=== PATIENT | female | born 1945 | race Caucasian/White ===

== ENCOUNTER 2017-07-14 16:09 | Inpatient (IN) | payer MEDICARE, MEDICAID ==
[~2017-07-14] VITALS: Ht 5619.3 cm; Wt 68.2 kg
[~2017-07-14 16:09] MED LIST: CALC-792 PO; CLOP75TA33 PO; CLOP75TA35 PO; DONE5TAB3 PO; FERR-86 PO; FOLI1TAB16 PO; LANS30CA37 PO; LORA1TAB PO; QUET-1 PO; SIMV10TA2 PO; THI100T PO; [UNRECOGNIZED DRUG - CODE] PO; [UNRECOGNIZED DRUG - CODE] PO
[2017-07-14] MEDS ORDERED: ipratropium/albuterol 3ml nebule NEB ONE (16:30)
[2017-07-14] MEDS ORDERED: methylPREDNISolone sod succ 125mg/2ml vial IM ONE (16:30)
[2017-07-14] MEDS ORDERED: levoFLOXACIN-Levaquin 500mg/D5 100 ML IV ONE (17:40)
[2017-07-14 18:00] LABS: ABG BASE EXCESS 0.8 mmol/L (-2.0-3.0); ABG HCO3 25.4 mmol/L (22.0-26.0); ABG OXYGEN SATURATION 93.1 % (95-98); ABG PCO2 (T) 40.6 mmHg (32.0-45.0); ABG PH (T) 7.414 (7.350-7.450); ABG PO2 (T) 61.2 mmHg (83-108); ALLEN'S TEST Positive; FCOHb 3.3 % (0.5-1.5); FMetHb 0.1 % (0.3-1.12); FO2Hb 89.9 % (94-100)
[2017-07-14 18:01] LABS: BASOPHILS % (AUTO) 0.4 % (0-1); EOSINOPHILS # (AUTO) 0.2 X10'3 (0-0.9); EOSINOPHILS % (AUTO) 2.3 % (0-6); HEMATOCRIT 43.8 % (35.0-45.0); LYMPHOCYTES # (AUTO) 2.3 X10'3 (1.1-4.8); LYMPHOCYTES % (AUTO) 24.9 % (21-51); MEAN CORPUSCULAR HGB CONC 34.3 % (33.0-36.5); MEAN CORPUSCULAR VOLUME 90.4 FL (78-98); MEAN PLATELET VOLUME 7.3 FL (7.4-10.4); MONOCYTES # (AUTO) 1.1 X10'3 (0-0.9); MONOCYTES % (AUTO) 11.9 % (2-12); NEUTROPHILS # (AUTO) 5.5 X10'3 (1.8-7.7); NEUTROPHILS % (AUTO) 60.5 % (42-75); PLATELET COUNT 253 X10'3 (140-440); RED BLOOD COUNT 4.84 X10'6 (4.20-5.60); RED CELL DISTRIBUTION WIDTH 14.9 % (11.5-14.5); WHITE BLOOD COUNT 9.1 X10'3 (4.5-11.0)
[2017-07-14 18:10] LABS: INR 0.9 INR; PROTHROMBIN TIME 9.8 SECONDS (9.0-12.0)
[2017-07-14 18:25] LABS: ALANINE AMINOTRANSFERASE 46 U/L (12-78); ALBUMIN 3.5 G/DL (3.4-5.0); ALKALINE PHOSPHATASE 78 IU/L (46-116); ANION GAP 5 (8-16); ASPARTATE AMINO TRANSFERASE 24 U/L (10-37); BILIRUBIN,TOTAL 0.2 MG/DL (0.1-1.0); BLOOD UREA NITROGEN 14 MG/DL (7-18); BUN/CREATININE RATIO 17.5 (6.6-38.0); CHLORIDE 103 MMOL/L (99-107); GLUCOSE 107 MG/DL (70-104); POTASSIUM 4.1 MMOL/L (3.5-5.1); SODIUM 138 MMOL/L (135-145); TOTAL CARBON DIOXIDE 29.6 MMOL/L (24-32); eGFR 70 ML/MIN
[2017-07-14] MEDS ORDERED: nicotine 21mg patch - 24 hr TD ONE (18:55)
[2017-07-14] MEDS: albuterol 2.5 MG/3 ML nebule NEB SCH ×2 (20:00→23:37)
[2017-07-14] MEDS: quetiapine 100mg tablet PO SCH (20:32)
[2017-07-14] MEDS: LORazepam 1 MG tablet PO SCH (20:32)
[2017-07-14] MEDS: ferrous sulfate 325mg tablet PO SCH (20:32)
[2017-07-14] MEDS: atorvastatin 10mg tablet PO SCH (20:32)
[2017-07-14] MEDS ORDERED: acetaminophen 325mg tablet PO PRN (21:35)
[2017-07-14] MEDS ORDERED: ondansetron/PF 4mg/2ml inj IV PRN (21:35)
[2017-07-14] MEDS ORDERED: mag hydrox/Alum hydrox/simeth 30ml oral suspension PO PRN (21:35)
[2017-07-14] MEDS ORDERED: magnesium hydroxide 30ml (MOM) UD suspension PO PRN (21:35)
[2017-07-15] MEDS: methylPREDNISolone sod succ/PF 40mg inj. IV SCH ×4 (00:07→23:54)
[2017-07-15 03:35] VITALS: BP 142/78
[2017-07-15] MEDS: albuterol 2.5 MG/3 ML nebule NEB SCH ×5 (04:19→20:01)
[2017-07-15 06:02] LABS: BASOPHILS % (AUTO) 0.1 % (0-1); EOSINOPHILS % (AUTO) 0 % (0-6); HEMATOCRIT 43.4 % (35.0-45.0); HEMOGLOBIN 14.8 g/dl (12.0-16.0); LYMPHOCYTES # (AUTO) 0.5 X10'3 (1.1-4.8); LYMPHOCYTES % (AUTO) 8.6 % (21-51); MEAN CORPUSCULAR HEMOGLOBIN 30.6 PG (27.0-31.0); MEAN PLATELET VOLUME 7.5 FL (7.4-10.4); MONOCYTES # (AUTO) 0.1 X10'3 (0-0.9); MONOCYTES % (AUTO) 2.2 % (2-12); NEUTROPHILS # (AUTO) 5.5 X10'3 (1.8-7.7); NEUTROPHILS % (AUTO) 89.1 % (42-75); PLATELET COUNT 265 X10'3 (140-440); RED BLOOD COUNT 4.83 X10'6 (4.20-5.60); RED CELL DISTRIBUTION WIDTH 14.9 % (11.5-14.5); WHITE BLOOD COUNT 6.2 X10'3 (4.5-11.0)
[2017-07-15 06:23] LABS: ALANINE AMINOTRANSFERASE 47 U/L (12-78); ALBUMIN 3.7 G/DL (3.4-5.0); ALKALINE PHOSPHATASE 80 IU/L (46-116); ANION GAP 8 (8-16); ASPARTATE AMINO TRANSFERASE 23 U/L (10-37); BILIRUBIN,TOTAL 0.2 MG/DL (0.1-1.0); BLOOD UREA NITROGEN 10 MG/DL (7-18); BUN/CREATININE RATIO 14.3 (6.6-38.0); CHLORIDE 103 MMOL/L (99-107); GLUCOSE 149 MG/DL (70-104); SODIUM 137 MMOL/L (135-145); TOTAL CARBON DIOXIDE 26.2 MMOL/L (24-32); TOTAL PROTEIN 7.3 G/DL (6.4-8.2); eGFR 82 ML/MIN
[2017-07-15 07:00] VITALS: BP 136/79
[2017-07-15] MEDS: thiamine 100mg tablet PO SCH (07:56)
[2017-07-15] MEDS: pantoprazole 40mg Tablet.DR PO SCH (07:57)
[2017-07-15] MEDS: folic acid 1mg tablet PO SCH (07:57)
[2017-07-15] MEDS: donepezil 5mg tablet PO SCH (07:57)
[2017-07-15] MEDS: clopidogrel 75mg tablet PO SCH (07:57)
[2017-07-15] MEDS: LORazepam 1 MG tablet PO SCH ×2 (07:57→20:20)
[2017-07-15] MEDS: ferrous sulfate 325mg tablet PO SCH ×2 (07:57→20:20)
[2017-07-15] MEDS: quetiapine 100mg tablet PO SCH ×2 (07:57→20:20)
[2017-07-15] MEDS: heparin, porcine 5000 units/ml vial SQ SCH ×2 (07:58→20:20)
[2017-07-15] MEDS: nicotine 14mg patch - 24hr TD SCH ×2 (08:00→14:05)
[2017-07-15 20:00] VITALS: BP 143/82
[2017-07-15] MEDS: atorvastatin 10mg tablet PO SCH (20:27)
[2017-07-16] VITALS: BP 138/72
[2017-07-16] MEDS: albuterol 2.5 MG/3 ML nebule NEB SCH ×4 (00:11→10:31)
[2017-07-16 05:58] LABS: BASOPHILS % (AUTO) 0 % (0-1); EOSINOPHILS % (AUTO) 0 % (0-6); HEMATOCRIT 41.1 % (35.0-45.0); HEMOGLOBIN 14.1 g/dl (12.0-16.0); LYMPHOCYTES # (AUTO) 0.7 X10'3 (1.1-4.8); LYMPHOCYTES % (AUTO) 4.7 % (21-51); MEAN CORPUSCULAR HEMOGLOBIN 30.9 PG (27.0-31.0); MEAN CORPUSCULAR HGB CONC 34.4 % (33.0-36.5); MEAN CORPUSCULAR VOLUME 89.9 FL (78-98); MEAN PLATELET VOLUME 7.6 FL (7.4-10.4); MONOCYTES # (AUTO) 0.6 X10'3 (0-0.9); NEUTROPHILS # (AUTO) 14.6 X10'3 (1.8-7.7); NEUTROPHILS % (AUTO) 91.3 % (42-75); PLATELET COUNT 249 X10'3 (140-440); RED BLOOD COUNT 4.57 X10'6 (4.20-5.60); RED CELL DISTRIBUTION WIDTH 14.8 % (11.5-14.5)
[2017-07-16 06:22] LABS: ALANINE AMINOTRANSFERASE 48 U/L (12-78); ALBUMIN 3.4 G/DL (3.4-5.0); ALKALINE PHOSPHATASE 65 IU/L (46-116); ANION GAP 7 (8-16); ASPARTATE AMINO TRANSFERASE 28 U/L (10-37); BILIRUBIN,TOTAL 0.2 MG/DL (0.1-1.0); BLOOD UREA NITROGEN 21 MG/DL (7-18); BUN/CREATININE RATIO 26.3 (6.6-38.0); CALCIUM 8.8 MG/DL (8.5-10.1); CHLORIDE 104 MMOL/L (99-107); GLUCOSE 129 MG/DL (70-104); POTASSIUM 4.2 MMOL/L (3.5-5.1); SODIUM 138 MMOL/L (135-145); TOTAL CARBON DIOXIDE 27.4 MMOL/L (24-32); TOTAL PROTEIN 6.8 G/DL (6.4-8.2); eGFR 70 ML/MIN
[2017-07-16] MEDS: heparin, porcine 5000 units/ml vial SQ SCH ×2 (07:37→20:45)
[2017-07-16] MEDS: methylPREDNISolone sod succ/PF 40mg inj. IV SCH ×2 (07:37→17:16)
[2017-07-16] MEDS: pantoprazole 40mg Tablet.DR PO SCH (07:37)
[2017-07-16] MEDS: folic acid 1mg tablet PO SCH (07:37)
[2017-07-16] MEDS: clopidogrel 75mg tablet PO SCH (07:37)
[2017-07-16] MEDS: LORazepam 1 MG tablet PO SCH ×2 (07:37→20:37)
[2017-07-16] MEDS: quetiapine 100mg tablet PO SCH ×2 (07:37→20:37)
[2017-07-16] MEDS: ferrous sulfate 325mg tablet PO SCH ×2 (07:37→20:37)
[2017-07-16] MEDS: nicotine 14mg patch - 24hr TD SCH (07:38)
[2017-07-16] MEDS: donepezil 5mg tablet PO SCH (07:38)
[2017-07-16] MEDS: thiamine 100mg tablet PO SCH (07:41)
[2017-07-16 08:00] VITALS: BP 133/76
[2017-07-16] MEDS ORDERED: predniSONE 20 mg tablet PO SCH (08:00)
[2017-07-16 11:00] VITALS: BP 118/66
[2017-07-16] MEDS: ipratropium/albuterol 3ml nebule NEB SCH ×3 (17:05→23:04)
[2017-07-16] MEDS: doxycycline hyclate 100mg tablet.DR PO SCH (17:16)
[2017-07-16 19:00] VITALS: BP 136/78
[2017-07-16] MEDS: atorvastatin 10mg tablet PO SCH (20:37)
[2017-07-17] VITALS: BP 157/79
[2017-07-17] MEDS: methylPREDNISolone sod succ/PF 40mg inj. IV SCH ×3 (00:03→17:10)
[2017-07-17] MEDS: ipratropium/albuterol 3ml nebule NEB SCH ×6 (02:30→23:49)
[2017-07-17 06:12] LABS: BASOPHILS % (AUTO) 0 % (0-1); EOSINOPHILS # (AUTO) 0.4 X10'3 (0-0.9); EOSINOPHILS % (AUTO) 1.8 % (0-6); HEMATOCRIT 41.3 % (35.0-45.0); LYMPHOCYTES # (AUTO) 0.7 X10'3 (1.1-4.8); LYMPHOCYTES % (AUTO) 3.6 % (21-51); MEAN CORPUSCULAR HGB CONC 33.9 % (33.0-36.5); MEAN CORPUSCULAR VOLUME 91.2 FL (78-98); MEAN PLATELET VOLUME 7.9 FL (7.4-10.4); MONOCYTES # (AUTO) 0.5 X10'3 (0-0.9); MONOCYTES % (AUTO) 2.7 % (2-12); NEUTROPHILS # (AUTO) 17.7 X10'3 (1.8-7.7); NEUTROPHILS % (AUTO) 91.9 % (42-75); PLATELET COUNT 271 X10'3 (140-440); RED BLOOD COUNT 4.53 X10'6 (4.20-5.60); RED CELL DISTRIBUTION WIDTH 14.5 % (11.5-14.5); WHITE BLOOD COUNT 19.2 X10'3 (4.5-11.0)
[2017-07-17 06:40] LABS: ALANINE AMINOTRANSFERASE 60 U/L (12-78); ALBUMIN 3.6 G/DL (3.4-5.0); ALBUMIN/GLOBULIN RATIO 1.1 (1.1-1.5); ALKALINE PHOSPHATASE 62 IU/L (46-116); ANION GAP 9 (8-16); ASPARTATE AMINO TRANSFERASE 36 U/L (10-37); BILIRUBIN,TOTAL 0.3 MG/DL (0.1-1.0); BLOOD UREA NITROGEN 21 MG/DL (7-18); CALCIUM 9.1 MG/DL (8.5-10.1); CHLORIDE 102 MMOL/L (99-107); GLUCOSE 127 MG/DL (70-104); SODIUM 136 MMOL/L (135-145); TOTAL CARBON DIOXIDE 25.2 MMOL/L (24-32); TOTAL PROTEIN 6.9 G/DL (6.4-8.2); eGFR 82 ML/MIN
[2017-07-17] MEDS: nicotine 14mg patch - 24hr TD SCH (07:57)
[2017-07-17] MEDS: ferrous sulfate 325mg tablet PO SCH ×2 (07:57→20:53)
[2017-07-17] MEDS: LORazepam 1 MG tablet PO SCH ×2 (07:57→20:52)
[2017-07-17] MEDS: pantoprazole 40mg Tablet.DR PO SCH (07:57)
[2017-07-17] MEDS: clopidogrel 75mg tablet PO SCH (07:58)
[2017-07-17] MEDS: folic acid 1mg tablet PO SCH (07:58)
[2017-07-17] MEDS: quetiapine 100mg tablet PO SCH ×2 (07:58→20:53)
[2017-07-17] MEDS: thiamine 100mg tablet PO SCH (07:58)
[2017-07-17] MEDS: doxycycline hyclate 100mg tablet.DR PO SCH ×2 (07:58→17:10)
[2017-07-17] MEDS: donepezil 5mg tablet PO SCH (07:58)
[2017-07-17] MEDS: heparin, porcine 5000 units/ml vial SQ SCH ×2 (07:59→20:54)
[2017-07-17 08:00] VITALS: BP 196/103
[2017-07-17 11:00] VITALS: BP 127/78
[2017-07-17] MEDS ORDERED: LORazepam 2 mg/ml vial IV PRN (17:40)
[2017-07-17 20:00] VITALS: BP 148/81
[2017-07-17] MEDS: atorvastatin 10mg tablet PO SCH (20:53)
[2017-07-17 23:30] VITALS: BP 130/71
[2017-07-18] MEDS: methylPREDNISolone sod succ/PF 40mg inj. IV SCH ×2 (00:09→07:51)
[2017-07-18] MEDS: ipratropium/albuterol 3ml nebule NEB SCH ×4 (03:06→15:02)
[2017-07-18 06:08] LABS: BASOPHILS % (AUTO) 0 % (0-1); EOSINOPHILS % (AUTO) 0 % (0-6); HEMATOCRIT 40.2 % (35.0-45.0); LYMPHOCYTES # (AUTO) 1.3 X10'3 (1.1-4.8); LYMPHOCYTES % (AUTO) 7.1 % (21-51); MEAN CORPUSCULAR HEMOGLOBIN 31.3 PG (27.0-31.0); MEAN CORPUSCULAR HGB CONC 34.9 % (33.0-36.5); MEAN CORPUSCULAR VOLUME 89.8 FL (78-98); MEAN PLATELET VOLUME 7.5 FL (7.4-10.4); MONOCYTES # (AUTO) 0.7 X10'3 (0-0.9); MONOCYTES % (AUTO) 3.7 % (2-12); NEUTROPHILS # (AUTO) 15.9 X10'3 (1.8-7.7); NEUTROPHILS % (AUTO) 89.2 % (42-75); PLATELET COUNT 280 X10'3 (140-440); RED BLOOD COUNT 4.48 X10'6 (4.20-5.60); WHITE BLOOD COUNT 17.9 X10'3 (4.5-11.0)
[2017-07-18 06:30] LABS: ALANINE AMINOTRANSFERASE 128 U/L (12-78); ALBUMIN 3.4 G/DL (3.4-5.0); ALBUMIN/GLOBULIN RATIO 1.1 (1.1-1.5); ALKALINE PHOSPHATASE 59 IU/L (46-116); ANION GAP 9 (8-16); ASPARTATE AMINO TRANSFERASE 50 U/L (10-37); BILIRUBIN,TOTAL 0.4 MG/DL (0.1-1.0); BLOOD UREA NITROGEN 20 MG/DL (7-18); CHLORIDE 104 MMOL/L (99-107); CREATININE 0.74 MG/DL (0.40-0.90); GLUCOSE 117 MG/DL (70-104); POTASSIUM 4.5 MMOL/L (3.5-5.1); SODIUM 140 MMOL/L (135-145); TOTAL CARBON DIOXIDE 26.9 MMOL/L (24-32); TOTAL PROTEIN 6.6 G/DL (6.4-8.2); eGFR 77 ML/MIN
[2017-07-18 07:19] LABS: TOTAL CELLS COUNTED 100
[2017-07-18 07:22] LABS: ANISOCYTOSIS 1+
[2017-07-18 07:23] LABS: PLATELET ESTIMATE NORMAL; TOXIC GRANULATION 1+
[2017-07-18] MEDS ORDERED: lactobacillus rhamnosus 10,000 MMU CELLS/CAPSULE PO SCH (07:30)
[2017-07-18] MEDS: doxycycline hyclate 100mg tablet.DR PO SCH (07:51)
[2017-07-18] MEDS: donepezil 5mg tablet PO SCH (07:51)
[2017-07-18] MEDS: quetiapine 100mg tablet PO SCH (07:51)
[2017-07-18] MEDS: pantoprazole 40mg Tablet.DR PO SCH (07:51)
[2017-07-18] MEDS: ferrous sulfate 325mg tablet PO SCH (07:52)
[2017-07-18] MEDS: nicotine 14mg patch - 24hr TD SCH (07:52)
[2017-07-18] MEDS: clopidogrel 75mg tablet PO SCH (07:52)
[2017-07-18] MEDS: folic acid 1mg tablet PO SCH (07:52)
[2017-07-18] MEDS: LORazepam 1 MG tablet PO SCH (07:52)
[2017-07-18] MEDS: thiamine 100mg tablet PO SCH (08:00)
[2017-07-18] MEDS: heparin, porcine 5000 units/ml vial SQ SCH (08:00)
[2017-07-18 11:00] VITALS: BP 134/71
[2017-07-18] MEDS ORDERED: LEVO500T2 PO (11:33)
[2017-07-18] MEDS ORDERED: PRED10TA23 PO (11:33)
[2017-07-18 15:57] VITALS: BP 159/89
== END 2017-07-18 16:47 | disposition home or self-care (01) | DRG 189 ==
LOC: ER 16:10 → ED HOLD 21:33 → SUR 3N 07-15 03:40
PROVIDERS: ADMIT Internal Medicine; ATTEND Internal Medicine
DX: J96.20 Acute and chronic respiratory failure, unspecified whether with hypoxia or hypercapnia (principal); J44.1 Chronic obstructive pulmonary disease with (acute) exacerbation; F03.90 Unspecified dementia, unspecified severity, without behavioral disturbance, psychotic disturbance, mood disturbance, and anxiety; D72.829 Elevated white blood cell count, unspecified; Z66 Do not resuscitate; F17.210 Nicotine dependence, cigarettes, uncomplicated; T38.0X5A Adverse effect of glucocorticoids and synthetic analogues, initial encounter; Z79.02 Long term (current) use of antithrombotics/antiplatelets; Z79.899 Other long term (current) drug therapy; Z88.8 Allergy status to other drugs, medicaments and biological substances; Z86.73 Personal history of transient ischemic attack (TIA), and cerebral infarction without residual deficits; Z87.11 Personal history of peptic ulcer disease; Z71.6 Tobacco abuse counseling; Y92.89 Other specified places as the place of occurrence of the external cause
CPT/HCPCS: 36415; 36600; 71045; 80053; 82803; 83605; 83880; 84484; 85018; 85025; 85610; 87040; 87070; 87502; 87503; 93005; 94640; 94760; 96365; 96372; 99285; J1644; J1956; J2920; J2930; J7030

== ENCOUNTER 2018-06-16 09:50 | Inpatient (IN) | payer MEDICARE, MEDICAID | END 2018-06-23 16:05 | disposition home health service (06) | LOC: ER 09:50 → ED HOLD 11:49 → SUR 3N 14:28 | DX: I21.A1 Myocardial infarction type 2 (principal); J96.01 Acute respiratory failure with hypoxia; I26.09 Other pulmonary embolism with acute cor pulmonale; B17.9 Acute viral hepatitis, unspecified; J44.9 Chronic obstructive pulmonary disease, unspecified; I95.9 Hypotension, unspecified ==

== ENCOUNTER 2018-08-26 07:16 | Inpatient (IN) | payer MEDICARE, MEDICAID | END 2018-09-01 16:45 | disposition home health service (06) | LOC: ER 07:16 → ED HOLD 08:40 → PCU 3S 10:50 | DX: A41.9 Sepsis, unspecified organism (principal); J18.9 Pneumonia, unspecified organism; E43 Unspecified severe protein-calorie malnutrition; J96.01 Acute respiratory failure with hypoxia; R47.02 Dysphasia ==

== ENCOUNTER 2020-05-11 05:13 | Emergency (ER) | payer MEDICARE, MEDICAID ==
[~2020-05-11] VITALS: Ht 167.6 cm; Wt 74.7 kg
[~2020-05-11 05:13] MED LIST changes: -CALC-792 PO; -CLOP75TA33 PO; -FERR-86 PO; +FURO-150 PO; +LANS15TA5 PO; -LANS30CA37 PO; +PER5325T PO; -THI100T PO; -[UNRECOGNIZED DRUG - CODE] PO; -[UNRECOGNIZED DRUG - CODE] PO
[2020-05-11 05:45] LABS: BASOPHILS # (AUTO) 0.1 X10'3 (0-0.2); BASOPHILS % (AUTO) 0.9 % (0-1); EOSINOPHILS # (AUTO) 0.2 X10'3 (0-0.9); EOSINOPHILS % (AUTO) 1.7 % (0-6); HEMOGLOBIN 13.3 g/dl (12.0-16.0); LYMPHOCYTES # (AUTO) 1.8 X10'3 (1.1-4.8); LYMPHOCYTES % (AUTO) 14.2 % (21-51); MEAN CORPUSCULAR HEMOGLOBIN 30.1 PG (27.0-31.0); MEAN CORPUSCULAR HGB CONC 33.3 g/dL (33.0-36.5); MEAN CORPUSCULAR VOLUME 90.3 FL (78-98); MEAN PLATELET VOLUME 8.1 FL (7.4-10.4); MONOCYTES % (AUTO) 8.4 % (2-12); NEUTROPHILS # (AUTO) 9.4 X10'3 (1.8-7.7); NEUTROPHILS % (AUTO) 74.8 % (42-75); PLATELET COUNT 355 X10'3 (140-440); RED BLOOD COUNT 4.43 X10'6 (4.20-5.60); RED CELL DISTRIBUTION WIDTH 15.3 % (11.5-14.5); WHITE BLOOD COUNT 12.5 X10'3 (4.5-11.0)
[2020-05-11 06:01] LABS: ALANINE AMINOTRANSFERASE 28 U/L (12-78); ALBUMIN 3.7 G/DL (3.4-5.0); ALKALINE PHOSPHATASE 68 IU/L (46-116); ANION GAP 9 (8-16); BILIRUBIN,TOTAL 0.5 MG/DL (0.1-1.0); BLOOD UREA NITROGEN 16 MG/DL (7-18); BUN/CREATININE RATIO 20.3 (6.6-38.0); CALCIUM 8.9 MG/DL (8.5-10.1); CHLORIDE 106 MMOL/L (99-107); CREATININE 0.79 MG/DL (0.40-0.90); GLUCOSE 100 MG/DL (70-104); SODIUM 142 MMOL/L (135-145); TOTAL CARBON DIOXIDE 26.9 MMOL/L (24-32); TOTAL PROTEIN 7.3 G/DL (6.4-8.2); eGFR 71 ML/MIN
[2020-05-11 06:04] LABS: ASPARTATE AMINO TRANSFERASE 32 U/L (10-37); POTASSIUM 3.6 MMOL/L (3.5-5.1); TROPONIN I < 0.04 NG/ML (0.0-0.05)
--- NOTE | 2020-05-11 06:11 | NUR ---
Spoke with pt's son Mahin [id number]. He states pt has had dementia for 14 years and is now and is in advanced stages. He states pt has been up most all of the night 7 out of the 9 nights. He is worried pt has a UTI because she would not urinate when he put her on the toilet recently. Straight Cathed Pt and removed 700ml. Pt cooperative and follows commands
[2020-05-11 06:31] LABS: CLARITY,URINE CLEAR (Clear); COLOR,URINE STRAW (Yellow); GLUCOSE, URINE NEGATIVE (Neg); KETONES,URINE NEGATIVE (Neg); LEUKOCYTE ESTERASE ,URINE NEGATIVE (Neg); NITRITES, URINE NEGATIVE (Neg); OCCULT BLOOD,URINE NEGATIVE (Neg); PROTEIN,URINE NEGATIVE (Neg); UROBILINOGEN,URINE 0.2 E.U/dL (0.2-1.0)
[2020-05-11 06:38] LABS: UA COLLECTION TYPE STRAIGHT CATH
[2020-05-11 10:34] VITALS: BP 132/72
== END 2020-05-11 11:03 | disposition home or self-care (01) ==
LOC: ER 05:13
DX: R41.82 Altered mental status, unspecified (principal); F03.90 Unspecified dementia, unspecified severity, without behavioral disturbance, psychotic disturbance, mood disturbance, and anxiety; R29.6 Repeated falls; R45.1 Restlessness and agitation; J44.9 Chronic obstructive pulmonary disease, unspecified; Z91.81 History of falling; Z86.69 Personal history of other diseases of the nervous system and sense organs; Z98.61 Coronary angioplasty status; Z88.8 Allergy status to other drugs, medicaments and biological substances; Z79.899 Other long term (current) drug therapy; Z86.73 Personal history of transient ischemic attack (TIA), and cerebral infarction without residual deficits
CPT/HCPCS: 36415; 70450; 71045; 72125; 80053; 81003; 84484; 85025; 93005; 99285